=== PATIENT | female | born 1985 | race African-American/Black ===

== ENCOUNTER 2021-04-08 07:08 | Emergency (ER) | payer OTHER ==
[~2021-04-08] VITALS: Ht 180.3 cm; Wt 109.1 kg
[~2021-04-08 07:08] MED LIST: AMOXICILLIN500 M1 PO; NAPROSYN500 MG PO
[2021-04-08 07:17] VITALS: BP 131/80; Ht 180.3 cm; Wt 109.1 kg
== END 2021-04-08 09:25 | disposition home or self-care (01) ==
LOC: D.ER 07:08
DX: M23.91 Unspecified internal derangement of right knee (principal)